=== PATIENT | female | born 2000 | race African-American/Black ===

== ENCOUNTER 2023-02-16 13:53 | Emergency (ER) | payer OTHER, SELFPAY ==
[2023-02-16 14:01] VITALS: BP 118/91; PULSE 60; RESP 20; TEMP 36.6; O2SAT 98
[2023-02-16 14:49] LABS: Influenza A QL RT-PCR Negative (Negative); Influenza B QL RT-PCR Negative (Negative); RSV RNA, RT-PCR Negative (Negative); SARS-CoV-2 RNA PCR Negative (Negative)
--- NOTE | 2023-02-16 14:52 | ED.GENADULT ---
HPI - General Adult General Chief complaint: Unspecified Stated complaint: wants FLU and COVID test Time Seen by Provider: 02/16/23 14:49 Source: patient Mode of arrival: ambulatory Limitations: no limitations History of Present Illness HPI narrative: this is a 22-year-old female who presents to the ED with chief complaint viral URI symptoms for the past 5-6 days. Reports she initially subjective fevers chills. She has cough and little sore throat but the sore throat improving. She states everything was started fell but she is still feeling very drained. She is requesting COVID and flu test today. denies fevers, chills, chest pain, shortness of breath, abdominal pain, nausea, vomiting, diarrhea or any further complaints. Related Data Allergies Allergy/AdvReac Type Severity Reaction Status Date / Time No Known Allergies Allergy Verified 02/16/23 14:04 Review of Systems Review of Systems: All systems as dictated in HPI Exam Narrative: GENERAL: Well-appearing, well-nourished, and in no acute distress. HEAD: Normocephalic, atraumatic. EYES: PERRLA and EOMI. ENT: Nares clear, no rhinorrhea or epistaxis. Mucous membranes moist. Oropharynx without tonsillar hypertrophy exudate or other lesions. NECK: Supple. No adenopathy or masses. CHEST: No respiratory distress. Clear to auscultation. No wheezes rales or rhonchi HEART: Regular rate and rhythm. No murmur heard. Normal peripheral pulses. ABDOMEN: Soft, nontender, nondistended, normal active bowel sounds. MSK: Normal range of motion. No edema. SKIN: Warm, dry, no rash. NEURO: Alert and oriented x3. No focal deficits. PSYCH: Normal mood and affect. Course Vital Signs Vital signs: Vital Signs Temperature 98 F 02/16/23 14:01 Pulse Rate 60 02/16/23 14:01 Respiratory Rate 20 02/16/23 14:01 Blood Pressure 118/91 H 02/16/23 14:01 Pulse Oximetry 98 02/16/23 14:01 Oxygen Delivery Room Air 02/16/23 14:01 Temperature 97.8 F 02/16/23 15:55 Pulse Rate 64 02/16/23 15:55 Respiratory Rate 16 02/16/23 15:55 Blood Pressure 116/86 02/16/23 15:55 Pulse Oximetry 100 02/16/23 15:55 Oxygen Delivery Room Air 02/16/23 14:01 Medical Decision Making MDM Narrative Medical decision making narrative: This is a 22-year-old female who presents to the ED with chief complaint of viral URI symptoms for the past 5 days. Vitals are normal. Exam remarkable for the above. She is requesting COVID and flu testing. These viral swabs are all negative. Symptoms consistent with viral syndrome. Pt will be discharged in stable condition. Return precautions given and supportive measures discussed. Pt is understanding and agreeable with plan for discharge and follow-up with PCP. Vital Signs Vital Signs: Vital Signs Temperature 98 F 02/16/23 14:01 Pulse Rate 60 02/16/23 14:01 Respiratory Rate 20 02/16/23 14:01 Blood Pressure 118/91 H 02/16/23 14:01 Pulse Oximetry 98 02/16/23 14:01 Oxygen Delivery Room Air 02/16/23 14:01 Temperature 97.8 F 02/16/23 15:55 Pulse Rate 64 02/16/23 15:55 Respiratory Rate 16 02/16/23 15:55 Blood Pressure 116/86 02/16/23 15:55 Pulse Oximetry 100 02/16/23 15:55 Oxygen Delivery Room Air 02/16/23 14:01 Lab Data Labs: Lab Results 02/16/23 Range/Units 14:07 Influenza A (RT-PCR) Negative (Negative) Influenza B (RT-PCR) Negative (Negative) RSV (RT-PCR) Negative (Negative) SARS-CoV-2 RNA (RT-PCR) Negative (Negative) Discharge Plan Discharge Clinical Impression: Acute viral syndrome Patient Disposition: Home, Self-Care Condition: Stable Instructions: Antibiotic Form Additional Instructions: your exam today is reassuring. No evidence of any COVID for flu. there is likely another virus that is affecting you and should pass over the next several days. Continue to take your regular medications [id number]. Prescribing
[2023-02-16 15:55] VITALS: BP 116/86; PULSE 64; RESP 16; TEMP 36.6; O2SAT 100
== END 2023-02-16 15:56 | disposition home or self-care (01) ==
PROVIDERS: Emergency Medicine; Emergency Provider Physician Assistant
DX: B34.9 Viral infection, unspecified (principal); Z20.822 Contact with and (suspected) exposure to COVID-19
CPT/HCPCS: 87637; 99283

== ENCOUNTER 2023-06-04 21:03 | Emergency (ER) | payer OTHER, SELFPAY ==
[2023-06-04 21:08] VITALS: BP 113/59; PULSE 57; RESP 20; TEMP 36.4; O2SAT 98
[2023-06-04 23:02] LABS: Influenza A QL RT-PCR Negative (Negative); Influenza B QL RT-PCR Negative (Negative); RSV RNA, RT-PCR Negative (Negative); SARS-CoV-2 RNA PCR Negative (Negative)
--- NOTE | 2023-06-04 23:14 | ED.GENADULT ---
HPI - General Adult General Chief complaint: Unspecified Stated complaint: rash Time Seen by Provider: 06/04/23 22:15 Source: patient Mode of arrival: ambulatory Limitations: no limitations History of Present Illness HPI narrative: This is a 22 year old female that presents to the ER for two complaints. Reports she has had cold symptoms over the last week and would like tested for COVID. Reports cough, congestion, rhinorrhea. Also reports she has had an itchy rash over the last couple of days. Does report she applied some scented lotion which she believes she may be having a reaction to. Denies fevers. Related Data Allergies Allergy/AdvReac Type Severity Reaction Status Date / Time No Known Allergies Allergy Verified 06/04/23 21:35 Review of Systems Review of Systems: CONSTITUTIONAL: Denies fever ENT: Reports rhinorrhea, congestion RESPIRATORY: Reports cough. Denies dyspnea. SKIN: Reports rash and itching. All systems reviewed & are unremarkable except as noted in HPI and below PMFSH Past Medical History Medical History (Updated 06/04/23 @ 23:20 by Tatiana Edmonds PA-C) No active medical problems Social History Social History (Updated 06/04/23 @ 23:20 by Tatiana Edmonds PA-C) Smoking status: Never smoker Exam Narrative: GENERAL: Well-appearing, well-nourished, and in no acute distress. HEAD: Normocephalic, atraumatic. EYES: EOMI. ENT: Nares clear, no rhinorrhea or epistaxis. Mucous membranes moist. Oropharynx without tonsillar hypertrophy exudate or other lesions. Bilateral TMs pearly albarado non-bulging NECK: Supple. No adenopathy or masses. CHEST: Clear to auscultation. No respiratory distress. No wheezes rales or rhonchi HEART: Regular rate and rhythm. No murmur heard. Normal peripheral pulses. EXTREMITIES: Normal range of motion. No edema. SKIN: Warm, dry. Papular rash present on the arms, chest, abdomen and back NEURO: No focal deficits. Alert and oriented x3. PSYCH: Normal mood and affect Course Course Emergency Course: Patient updated on workup and agrees with plan of care Vital Signs Vital signs: Vital Signs Temperature 97.5 F L 06/04/23 21:08 Pulse Rate 57 L 06/04/23 21:08 Respiratory Rate 20 06/04/23 21:08 Blood Pressure 113/59 L 06/04/23 21:08 Pulse Oximetry 98 06/04/23 21:08 Oxygen Delivery Room Air 06/04/23 21:08 Temperature 97.5 F L 06/04/23 21:08 Pulse Rate 57 L 06/04/23 21:08 Respiratory Rate 20 06/04/23 21:08 Blood Pressure 113/59 L 06/04/23 21:08 Pulse Oximetry 98 06/04/23 21:08 Oxygen Delivery Room Air 06/04/23 21:32 Medical Decision Making MDM Narrative Medical decision making narrative: Patient presents to the ER for cold symptoms. Also reporting an itchy rash. She is afebrile and nontoxic appearing. Oxygen saturation is normal on room air. Lungs are clear on exam. Influenza, COVID, and RSV screens are negative. She was instructed on continued care a viral infection. Patient also reporting an itchy rash. Instructed on use of antihistamines and will be started on steroid taper. She is to follow up with primary provider. She was given warnings to return to the ER Differential Diagnosis Differential Diagnosis: URI, COVID, Flu, RSV, contact dermatitis Vital Signs Vital Signs: Vital Signs Temperature 97.5 F L 06/04/23 21:08 Pulse Rate 57 L 06/04/23 21:08 Respiratory Rate 20 06/04/23 21:08 Blood Pressure 113/59 L 06/04/23 21:08 Pulse Oximetry 98 06/04/23 21:08 Oxygen Delivery Room Air 06/04/23 21:08 Temperature 97.5 F L 06/04/23 21:08 Pulse Rate 57 L 06/04/23 21:08 Respiratory Rate 20 06/04/23 21:08 Blood Pressure 113/59 L 06/04/23 21:08 Pulse Oximetry 98 06/04/23 21:08 Oxygen Delivery Room Air 06/04/23 21:32 Lab Data Lab results reviewed: Yes I reviewed the patient's lab results. Labs: Lab Results 06/04/23 Range/Units 22:22 Influenza A (RT-PCR) Negative (Ne
[2023-06-04] MEDS: FAMOTIDINE 20 MG TABLET PO (23:51)
[2023-06-04] MEDS: LORATADINE 10 MG TABLET PO (23:51)
--- NOTE | 2023-06-05 | ECG_ITS ---
Measurements Intervals [place] Rate: 46 P: 19 GA: 170 QRS: 55 QRSD: 90 T: 22 QT: 489 QTc: 432 Interpretive Statements SINUS BRADYCARDIA WITH SINUS ARRHYTHMIA POOR R PROGRESSION BORDERLINE ECG NO PREVIOUS ECG AVAILABLE FOR COMPARISON Electronically Signed On 06-05-2023 14:29:45 CDT by Farooq Bryant M.D.
[2023-06-05 00:15] VITALS: BP 133/63; PULSE 60; RESP 18; O2SAT 100
== END 2023-06-05 00:15 | disposition home or self-care (01) ==
PROVIDERS: Emergency Provider Physician Assistant
DX: J06.9 Acute upper respiratory infection, unspecified (principal); R21 Rash and other nonspecific skin eruption; Z20.822 Contact with and (suspected) exposure to COVID-19; R00.1 Bradycardia, unspecified
CPT/HCPCS: 87637; 93005; 99283; A9270

== ENCOUNTER 2023-06-25 20:26 | Emergency (ER) | payer OTHER, SELFPAY ==
--- NOTE | ~2023-06-25 | XR_ITS ---
EXAM: XR foot LT min 3V DATE: 06/25/2023 21:43 HISTORY: fall, pain . COMPARISON: None available. FINDINGS: Normal mineralization. No fracture or dislocation. No lytic or blastic lesion. Joint space s are maintained. No erosion or periosteal change. Soft tissues within normal limits. IMPRESSION: No acute osseous finding in the left foot. Reviewed, dictated and finalized at location K.
[2023-06-25 20:27] VITALS: BP 132/66; PULSE 61; RESP 17; TEMP 36.9; O2SAT 99
--- NOTE | 2023-06-26 02:24 | ED.LOWEXIN ---
HPI - Extremity Injury (Lower) General Chief Complaint: Extremity Injury, Lower Stated Complaint: L foot pain Time Seen by Provider: 06/26/23 01:40 Source: patient Mode of arrival: wheelchair Limitations: no limitations History of Present Illness HPI Narrative: This is a 22 year old female that presents to the ER for left foot pain. Reports an injury today. Reports she slipped and fell and twisted her left foot. Reports swelling and pain since. She has not been able to walk due to pain. No other injuries or focal areas of pain. Denies numbness. Related Data Allergies Allergy/AdvReac Type Severity Reaction Status Date / Time No Known Allergies Allergy Verified 06/25/23 20:27 Review of Systems Review of Systems: CONSTITUTIONAL: Denies fever MUSCULOSKELETAL: Reports joint pain, and myalgia. NEUROLOGIC: Denies numbness All systems reviewed & are unremarkable except as noted in HPI and below PMFSH Past Medical History Medical History (Updated 06/26/23 @ 02:25 by Tatiana Edmonds PA-C) No active medical problems Social History Social History (Updated 06/04/23 @ 23:20 by Tatiana Edmonds PA-C) Smoking status: Never smoker Exam Narrative: GENERAL: Well-appearing, well-nourished, and in no acute distress. HEAD: Normocephalic, atraumatic. EYES: EOMI. EXTREMITIES: Normal range of motion. No edema or obvious deformity. Normal DP pulse. Normal sensation SKIN: Warm, dry, no rash. NEURO: No focal deficits. Alert and oriented x3. PSYCH: Normal mood and affect Course Course Emergency Course: Patient updated on workup and agrees with plan of care Vital Signs Vital signs: Vital Signs Temperature 98.5 F 06/25/23 20:27 Pulse Rate 61 06/25/23 20:27 Respiratory Rate 17 06/25/23 20:27 Blood Pressure 132/66 06/25/23 20:27 Pulse Oximetry 99 06/25/23 20:27 Oxygen Delivery Room Air 06/25/23 20:27 Temperature 98.5 F 06/25/23 20:27 Pulse Rate 61 06/25/23 20:27 Respiratory Rate 17 06/25/23 20:27 Blood Pressure 132/66 06/25/23 20:27 Pulse Oximetry 99 06/25/23 20:27 Oxygen Delivery Room Air 06/25/23 20:27 MDM - Extremity Injury (Lower) MDM Narrative Medical decision making narrative: Patient presents to the ER after an injury today to the left foot. Patient is neurovascularly intact. Left foot x-ray without acute osseous abnormalities. Patient placed in ANASTACIO wrap and given crutches. Instructed on further care of foot sprain. She is to follow up with PCP. She was given warnings to return to the ER Differential Diagnosis Differential diagnosis: Likely other (foot fracture, foot sprain) Imaging Data Radiologist's impression: ITS Impressions Foot X-Ray 06/25/23 22:20 IMPRESSION: No acute osseous finding in the left foot. Critical Care Time Critical Care Time Critical Care Time: No Discharge Plan Discharge Clinical Impression: Foot sprain Qualifiers: Encounter type: initial encounter Laterality: left Qualified Code(s): S93.602A - Unspecified sprain of left foot, initial encounter Patient Disposition: Home, Self-Care Condition: Stable Instructions: Foot Sprain (ED) Additional Instructions: Return to the ER if you experience fever, redness and swelling of your extremity, numbness or any other symptoms that are concerning to you Wear ANASTACIO wrap and use crutches. No weight on the affected leg until able to bear weight without pain. Ice and elevate extremity. Pain medication as needed and directed. Follow up with your doctor for further care. Prescriptions: No Action guaifenesin 400 mg tablet 400 mg PO QID PRN (Reason: cough) Qty: 20 0RF prednisone 10 mg tablet 10 mg PO DAILY Qty: 45 0RF Rx Instructions: 5 tabs daily for 3 days, 4 tabs daily for 3 days, 3 tabs daily for 3 days, 2 tabs daily for 3 days, 1 tab daily for 3 days Follow-up/Referrals: UNKNOWN,DOCTOR [Primary Care Provider] -
[2023-06-26] MEDS: ACETAMINOPHEN 500 MG TABLET 1000 MG PO (02:27)
== END 2023-06-26 02:45 | disposition home or self-care (01) ==
PROVIDERS: Emergency Provider Physician Assistant
DX: S93.602A Unspecified sprain of left foot, initial encounter (principal); W01.0XXA Fall on same level from slipping, tripping and stumbling without subsequent striking against object, initial encounter
CPT/HCPCS: 73630; 99283; A9270

== ENCOUNTER 2024-04-30 20:15 | Emergency (ER) | payer OTHER, SELFPAY ==
[2024-04-30 20:20] VITALS: BP 127/68; PULSE 70; RESP 18; TEMP 36.4; O2SAT 99
[2024-05-01 01:35] VITALS: BP 128/53; PULSE 57; RESP 18; O2SAT 100
--- NOTE | 2024-05-01 03:39 | ED.SKABFB ---
HPI - Skin/Abscess/Foreign Bdy General Chief complaint: Skin/Abscess/Foreign Body Stated complaint: rash Time Seen by Provider: 05/01/24 03:03 History of Present Illness HPI narrative: 23-year-old otherwise healthy female presenting to the emergency department for diffuse urticaria and rash for last 2 days. 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 She started getting itchiness all over her body and knows that the itchiness and rash has spread. On examination she has diffuse urticaria and maculopapular lesions over her bilateral arms, thighs, back but spares the palms and soles. No bug bites or sensations of any pain. She describes itchy rash over both arms and legs. Has not tried any medications prior to arrival. No other exposures, no detergent changes, no new laundry, no new clothing, no new pets. No systemic features such as nausea, vomiting, shortness a breath, headache or vision changes. Related Data Allergies Allergy/AdvReac Type Severity Reaction Status Date / Time No Known Allergies Allergy Verified 04/30/24 20:22 Review of Systems Review of Systems: As reviewed above in HPI [facility] Past Medical History Medical History No active medical problems Social History Social History Smoking status: Never smoker Exam Narrative: GENERAL: [Well-appearing, well-nourished, and in no acute distress.] HEAD: [Normocephalic, atraumatic.] EYES: [PERRLA and EOMI.] ENT: Nares clear, no rhinorrhea or epistaxis. Mucous membranes moist. NECK: Supple. CHEST: [Clear to auscultation. No respiratory distress.] HEART: [Regular rate and rhythm]. No murmur heard. [Normal peripheral pulses.] ABDOMEN: [Soft, nondistended], [nontender], [No rigidity or guarding] EXTREMITIES: Normal range of motion. [No edema.] SKIN: Diffuse urticarial rash over the proximal arms and legs, back. Spares the palms and soles. Itchy but not warm or tender to palpation. NEURO: [No focal deficits]. Alert and oriented [x3.] PSYCH: [Normal mood and affect.] Course Vital Signs Vital signs: Vital Signs Temperature 36.4 C L 04/30/24 20:20 Pulse Rate 70 04/30/24 20:20 Respiratory Rate 18 04/30/24 20:20 Blood Pressure 127/68 04/30/24 20:20 Pulse Oximetry 99 04/30/24 20:20 Oxygen Delivery Room Air 04/30/24 20:20 Temperature 36.4 C L 04/30/24 20:20 Pulse Rate 57 L 05/01/24 01:35 Respiratory Rate 18 05/01/24 01:35 Blood Pressure 128/53 L 05/01/24 01:35 Pulse Oximetry 100 05/01/24 01:35 Oxygen Delivery Room Air 04/30/24 20:20 MDM - Skin/Abscess/Foreign Bdy MDM Narrative Medical decision making narrative: 23-year-old female presenting with urticaria and diffuse maculopapular rash in her proximal forearms, legs and back. Spares the palms and soles. No recent exposure or changes to her daily environment such as laundry detergents, pet dander, foods, clothing. 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 She is otherwise well-appearing with normal vital signs. We will trial some histamine blocking agents such as Pepcid and diphenhydramine as well as some steroids given the widespread nature of the rash. She is safe for discharge home at this time with return precautions, follow-up instructions and prescription medications for the above. Patient felt comfortable with this plan and safely discharged. Medical Records Attestation: I reviewed the patient's medical records. Discharge Plan Discharge Clinical Impression: Urticaria, Viral exanthem Patient Disposition: Home, Self-Care Condition: Stable Instructions: Antibiotic Form, Urticaria (ED), Acute Rash (ED), Viral Exanthem (ED) Additional Instructions: Take the prescription medications which include medicines for rash in allergies such as diphenhydramine, Pepcid and prednisone. Follow-up with regular doctor on outpatient basis. You can also get oxmo-dln-jilgiat cream such as calamine lotion to apply to help sooth the areas that are bothersome. Patient Language: Thai Prescriptions: New famotidine [Acid Controller] 20 mg tablet 20 mg PO BID PRN (Reason: Itchiness) Qty: 20 0RF diphenhydramine HCl 25 mg capsule 25 mg PO TID PRN (Reason: itching) Qty: 20 0RF prednisone 50 mg tablet 50 mg PO DAILY 5 Days Qty: 5 0RF No Action guaifenesin 400 mg tablet 400 mg PO QID PRN (Reason: cough) Qty: 20 0RF prednisone 10 mg tablet 10 mg PO DAILY Qty: 45 0RF Rx Instructions: 5 tabs daily for 3 days, 4 tabs daily for 3 days, 3 tabs daily for 3 days, 2 tabs daily for 3 days, 1 tab daily for 3 days Follow-up/Referrals: UNKNOWN,DOCTOR [Primary Care Provider] - Time of Disposition: 03:38
[2024-05-01] MEDS: predniSONE 20 MG TABLET 60 MG PO (03:46)
[2024-05-01] MEDS: FAMOTIDINE 20 MG TABLET PO (03:46)
[2024-05-01] MEDS: diphenhydrAMINE HCl CAP 25 MG CAPSULE PO (03:46)
[2024-05-01 03:50] VITALS: BP 122/74; PULSE 88; RESP 18; O2SAT 100
== END 2024-05-01 03:51 | disposition home or self-care (01) ==
PROVIDERS: Emergency Provider Student in an Organized Health Care Education/Training Program
DX: B09 Unspecified viral infection characterized by skin and mucous membrane lesions (principal); L50.9 Urticaria, unspecified
CPT/HCPCS: 99283; A9270; J7512